=== PATIENT | female | born 1935 | race Caucasian/White ===

== ENCOUNTER 2016-10-30 14:03 | Inpatient (IN) | payer MEDICARE, BC ==
[2016-10-30] VITALS (24 sets, daily range): BP systolic 83–123; RESP 13–35; TEMP 98; Ht 170.2 cm; Wt 73.6 kg
[~2016-10-30] VITALS: Ht 170.2 cm; Wt 73.6 kg
[~2016-10-30 14:03] MED LIST: LIDOCAINE 2% SYR 5 ML IV ONE; PHENYLEPHRINE 10 MG/ML VIAL IV ONE; PROPOFOL 50ML VIAL IV ONE
[2016-10-30] MEDS ORDERED: SODIUM CHLORIDE 0.9% 1,000 ML ONE (14:21)
[2016-10-30] MEDS ORDERED: PANTOPRAZOLE 40 MG VIAL IV ONE ×2 (14:36→14:39)
[2016-10-30] MEDS ORDERED: SODIUM CHLORIDE 0.9% 250 ML IV ONE (14:36)
[2016-10-30] MEDS ORDERED: ONDANSETRON 4 MG VIAL ONE (14:36)
[2016-10-30] MEDS ORDERED: ED DILTIAZEM DRIP 125 ML IV ONE (15:06)
[2016-10-30] MEDS ORDERED: DILTIAZEM 50 MG/10 ML VIAL IV ONE (15:06)
[2016-10-30] MEDS ORDERED: SODIUM CHLORIDE 0.9% 1,000 ML IV SCH (16:00)
[2016-10-30] MEDS: PANTOPRAZOLE 80 MG in SODIUM CHLORIDE 0.9% 250 ML IV SCH (18:00)
[2016-10-30] MEDS: LEVOTHYROXINE 0.025 MG TAB PO SCH (18:18)
[2016-10-30] MEDS ORDERED: CARDIZEM 1 MG/ML DRIP 125 ML IV SCH (18:20)
[2016-10-30] MEDS: GABAPENTIN 100 MG CAP PO SCH (20:51)
[2016-10-30] MEDS: Atorvastatin 20 MG TAB PO SCH (20:51)
[2016-10-30] MEDS: DEXTROSE 5% SALINE 0.45% 1,000 ML IV SCH (22:54)
[2016-10-31] VITALS (53 sets, daily range): BP systolic 73–141; RESP 12–28; TEMP 96.7–98.8
[2016-10-31] MEDS: PANTOPRAZOLE 80 MG in SODIUM CHLORIDE 0.9% 250 ML IV SCH ×3 (01:02→21:08)
[2016-10-31] MEDS: DEXTROSE 5% SALINE 0.45% 1,000 ML IV SCH (09:14)
[2016-10-31] MEDS: LEVOTHYROXINE 0.025 MG TAB PO SCH (09:19)
[2016-10-31] MEDS: GABAPENTIN 100 MG CAP PO SCH ×2 (09:19→21:08)
[2016-10-31] MEDS: METOPROLOL XL 25 MG TAB PO SCH (12:02)
[2016-10-31] MEDS: Atorvastatin 20 MG TAB PO SCH (21:08)
[2016-11-01] VITALS (19 sets, daily range): BP systolic 96–139; RESP 13–21; TEMP 97–98.1
[2016-11-01] MEDS ORDERED: MISSING DOSE XX ONE (06:40)
[2016-11-01] MEDS: PANTOPRAZOLE 80 MG in SODIUM CHLORIDE 0.9% 250 ML IV SCH ×2 (08:32→18:05)
[2016-11-01] MEDS: METOPROLOL XL 25 MG TAB PO SCH (08:32)
[2016-11-01] MEDS: GABAPENTIN 100 MG CAP PO SCH ×2 (08:32→20:39)
[2016-11-01] MEDS: LEVOTHYROXINE 0.025 MG TAB PO SCH (08:32)
[2016-11-01] MEDS: Atorvastatin 20 MG TAB PO SCH (20:39)
[2016-11-02 04:23] VITALS: BP_SYST 137; RESP 16; TEMP 97.4
[2016-11-02] MEDS: LEVOTHYROXINE 0.025 MG TAB PO SCH (06:36)
[2016-11-02] MEDS ORDERED: PANTOPRAZOLE 40 MG TAB PO SCH (07:00)
[2016-11-02 07:06] VITALS: BP_SYST 125; RESP 18; TEMP 97.6
[2016-11-02] MEDS: GABAPENTIN 100 MG CAP PO SCH (09:26)
[2016-11-02] MEDS: METOPROLOL XL 25 MG TAB PO SCH (09:26)
[2016-11-02 10:45] VITALS: BP_SYST 88; RESP 18; TEMP 97.9
[2016-11-02 12:23] VITALS: BP_SYST 88; RESP 18; TEMP 97.9
[2016-11-02 12:33] VITALS: BP_SYST 88; RESP 18; TEMP 97.9
[2016-11-02 12:39] VITALS: BP_SYST 88; RESP 18; TEMP 97.9
== END 2016-11-02 13:04 | disposition home or self-care (01) | DRG 378 ==
LOC: ENRESERVDT → ENRESERVTM → ER 14:03 → ENPENDDIS 15:59 → EMR 15:59 → ICU 17:44 → 4NT 11-01 18:44
PROVIDERS: ADMIT Internal Medicine; ATTEND Internal Medicine
PROC: 0DJ08ZZ Inspection of Upper Intestinal Tract, Via Natural or Artificial Opening Endoscopic (ICD-10-PCS; principal; 2016-10-31 07:15)
DX: K92.2 Gastrointestinal hemorrhage, unspecified (principal); D62 Acute posthemorrhagic anemia; I48.91 Unspecified atrial fibrillation; K44.9 Diaphragmatic hernia without obstruction or gangrene; E03.9 Hypothyroidism, unspecified; E78.5 Hyperlipidemia, unspecified; I10 Essential (primary) hypertension; Z86.73 Personal history of transient ischemic attack (TIA), and cerebral infarction without residual deficits
CPT/HCPCS: 36415; 36430; 71010; 80048; 80053; 82553; 83880; 84484; 85014; 85018; 85025; 85610; 86850; 86900; 86901; 86923; 93005; 94799; 96361; 96365; 96366; 96375; 99223; 99232; 99233; 99239